=== PATIENT | female | born 1955 | race Caucasian/White ===

== ENCOUNTER → 2016-09-16 | Outpatient (CLI) | payer OTHER ==
[~2016-09-16] MED LIST: ARIM1TAB4; CLON-412 PO; MAXA10TA14 PO; MOTR200T44 PO; NEXI40CA PO; TRAM100T PO
--- NOTE | 2016-09-17 12:03 | RADONC ---
RADIATION ONCOLOGY FOLLOWUP NOTE: DATE OF SERVICE: 09/16/2016 CHART NO: [id number] DIAGNOSIS: Right breast cancer. STAGE: Stage II A, T2N0M0 ECOG PERFORMANCE STATUS: 0 Ms. 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 The patient presents today reporting that she is doing quite well with no complaints at this time related to her radiation therapy or disease. She has no breast or bone pain. REVIEW OF SYSTEMS: The patient's review of systems is noncontributory. Denies nausea, vomiting, fevers, chills, night sweats, diplopia, headaches, anxiety or depression, anorexia, weight loss, visual disturbances, chest pain, urinary or bowel difficulties, bone pain, or neurological problems. PHYSICAL EXAMINATION: The patient is a well-developed, well-nourished female in no acute distress. HEENT exam is normocephalic, atraumatic. Extraocular movements are intact. There is no palpable cervical, supraclavicular, infraclavicular, axillary, or inguinal lymphadenopathy present. Lungs are clear to auscultation and percussion. Heart has a regular rate and rhythm. Abdomen is benign with no hepatosplenomegaly, masses, or tenderness. Breast examination reveals no masses or discharge bilaterally. Skeletal examination reveals no tenderness to pressure or percussion of the bony skeleton. Extremities reveal no clubbing, cyanosis, or edema. Neurologic exam is grossly intact, as is the remainder of the physical examination. ASSESSMENT: The patient is clinically LOU at this time will be seen by us again in 6 months for further followup. She will also continue to be followed by her other physicians as well. cc: Argelia Saunders MD *Dr. Burton
== END ==
LOC: M ONCR 13:06
PROVIDERS: ATTEND Radiology Radiation Oncology
DX: C50.511 Malignant neoplasm of lower-outer quadrant of right female breast (principal)

== ENCOUNTER → 2017-03-24 | Outpatient (CLI) | payer OTHER ==
--- NOTE | 2017-03-25 07:42 | RADONC ---
RADIATION ONCOLOGY FOLLOWUP NOTE DATE: 03/24/2017 CHART NUMBER: [id number] DIAGNOSIS: Right breast cancer. STAGE: II A, T2N0M0. ECOG PERFORMANCE STATUS: 0. FOLLOWUP NOTE: Ms. 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 The patient presents today reporting that she is doing quite well with no complaints at this time related to radiation therapy or disease. She has no breast or bone pain. REVIEW OF SYSTEMS: The patient's review of systems is noncontributory. Denies nausea, vomiting, fevers, chills, night sweats, diplopia, headaches, anxiety or depression, anorexia, weight loss, visual disturbances, chest pain, urinary or bowel difficulties, bone pain, or neurological problems. PHYSICAL EXAMINATION: The patient is a well-developed, well-nourished 61-year-old female in no acute distress. HEENT exam is normocephalic, atraumatic. Extraocular movements are intact. There is no palpable cervical, supraclavicular, infraclavicular, axillary, or inguinal lymphadenopathy present. Lungs are clear to auscultation and percussion. Heart has a regular rate and rhythm. Abdomen is benign with no hepatosplenomegaly, masses, or tenderness. Breast examination reveals no masses or discharge bilaterally. Skeletal examination reveals no tenderness to pressure or percussion of the bony skeleton. Extremities reveal no clubbing, cyanosis, or edema. Neurologic exam is grossly intact, as is the remainder of the physical examination. ASSESSMENT: The patient is clinically LOU at this time and will be seen by us again in 6 months for further followup. She will also continue be followed by her other physicians as well. Cc: Dr. Burton cc: Argelia Saunders MD
== END ==
LOC: M ONCR 13:09
PROVIDERS: ATTEND Radiology Radiation Oncology
DX: C50.511 Malignant neoplasm of lower-outer quadrant of right female breast (principal)

== ENCOUNTER → 2017-09-29 | Outpatient (CLI) | payer OTHER | LOC: M ONCR 13:17 | DX: Z08 Encounter for follow-up examination after completed treatment for malignant neoplasm (principal); Z85.3 Personal history of malignant neoplasm of breast; Z92.3 Personal history of irradiation | CPT/HCPCS: G0463 ==

== ENCOUNTER → 2018-10-12 | Outpatient (CLI) | payer OTHER ==
[~2018-10-12] MED LIST changes: -ARIM1TAB4; +ARIM1TAB5; +AROM25TA PO; +CLON0.3D8 TOP; -TRAM100T PO; +TRAM100T21 PO; +WELLTAB40 PO
--- NOTE | 2018-10-14 08:24 | RADONC ---
RADIATION ONCOLOGY FOLLOWUP NOTE DATE: 10/12/2018 CHART NUMBER: [id number] DIAGNOSIS: Right breast cancer. STAGE: Stage II A, T2N0M0 ECOG PERFORMANCE STATUS: 0. FOLLOWUP NOTE: Ms. 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 The patient presents today reporting that she is doing quite well with no complaints at this time related to her radiation therapy or disease. She has no breast or bone pain. REVIEW OF SYSTEMS: The patient's review of systems is noncontributory. Denies nausea, vomiting, fevers, chills, night sweats, diplopia, headaches, anxiety or depression, anorexia, weight loss, visual disturbances, chest pain, urinary or bowel difficulties, bone pain, or neurological problems. PHYSICAL EXAMINATION: The patient is a well-developed, well-nourished female in no acute distress. HEENT exam is normocephalic, atraumatic. Extraocular movements are intact. There is no palpable cervical, supraclavicular, infraclavicular, axillary, or inguinal lymphadenopathy present. Lungs are clear to auscultation and percussion. Heart has a regular rate and rhythm. Abdomen is benign with no hepatosplenomegaly, masses, or tenderness. Breast examination reveals no masses or discharge bilaterally. Skeletal examination reveals no tenderness to pressure or percussion of the bony skeleton. Extremities reveal no clubbing, cyanosis, or edema. Neurologic exam is grossly intact, as is the remainder of the physical examination. ASSESSMENT: The patient is clinically LOU at this time. She reports that she is being followed closely by her medical oncologist, Dr. Rosado, and is indeed scheduled see her in November for further followup. Dr. Rosado is managing the patient's medication. In light of this close followup and management, I have discharge this patient from our followup except on an as needed basis. The patient has my cell phone number and office number and we are available to her at anytime for anything whatsoever. cc: MD Lia Gambino MD
== END ==
LOC: M ONCR 12:50
PROVIDERS: ATTEND Radiology Radiation Oncology
DX: C50.511 Malignant neoplasm of lower-outer quadrant of right female breast (principal)

== ENCOUNTER → 2020-09-28 | Outpatient (REF) | payer OTHER | LOC: M LAB REF 11:45 | PROVIDERS: ATTEND Nurse Practitioner Adult Health | DX: M85.80 Other specified disorders of bone density and structure, unspecified site (principal); M81.0 Age-related osteoporosis without current pathological fracture ==

== ENCOUNTER → 2021-02-27 | Outpatient (CLI) | payer OTHER ==
--- NOTE | 2021-02-28 05:36 | REP ---
INDICATION: PAIN COMPARISON: None. TECHNIQUE: Internal rotation, external rotation, and Y view. FINDINGS: Acromioclavicular and glenohumeral joints are intact and essentially age-appropriate. Mild osteopenia and mild age-related changes include subtle cortical irregularity at the acromion and subtle blunting to the calcified glenoid rim. Subtle subchondral cystic changes along the humeral head cannot be excluded. Subacromial space is normal. No periarticular calcifications or loose bodies. Evidence for prior right axillary node dissection. IMPRESSION: Mild age-related arthritic changes. <Electronically signed by Gregg Edwards > 02/28/21 [id number]
== END ==
LOC: M WUC 15:09
PROVIDERS: ATTEND Nurse Practitioner Adult Health
DX: M25.511 Pain in right shoulder (principal); M19.011 Primary osteoarthritis, right shoulder

== ENCOUNTER → 2021-04-19 | Outpatient (REF) | payer OTHER | LOC: M LAB REF 16:31 | PROVIDERS: ATTEND Nurse Practitioner Adult Health | DX: Z51.81 Encounter for therapeutic drug level monitoring (principal); Z79.899 Other long term (current) drug therapy ==

== ENCOUNTER → 2021-09-14 | Outpatient (REF) | payer OTHER | LOC: M LAB REF 10:21 | PROVIDERS: ATTEND Nurse Practitioner Adult Health | DX: R30.0 Dysuria (principal) ==

== ENCOUNTER → 2021-10-25 | Outpatient (REF) | payer OTHER | LOC: M LAB REF 12:11 | PROVIDERS: ATTEND Nurse Practitioner Adult Health | DX: Z51.81 Encounter for therapeutic drug level monitoring (principal) ==

== ENCOUNTER → 2022-05-08 | Outpatient (REF) | payer OTHER ==
[~2022-05-08] MED LIST changes: -MAXA10TA14 PO; +RIZA10TA64 PO
== END ==
LOC: M LAB REF 12:36
PROVIDERS: ATTEND Nurse Practitioner Adult Health
DX: E87.6 Hypokalemia (principal); M81.0 Age-related osteoporosis without current pathological fracture

== ENCOUNTER → 2022-06-18 | Outpatient (REF) | payer OTHER | LOC: M LAB REF 12:22 | PROVIDERS: ATTEND Nurse Practitioner Adult Health | DX: Z01.818 Encounter for other preprocedural examination (principal) ==

== ENCOUNTER → 2022-12-13 | Outpatient (REF) | payer OTHER | LOC: M LAB REF 16:27 | PROVIDERS: ATTEND Nurse Practitioner Adult Health | DX: Z79.899 Other long term (current) drug therapy (principal) ==

== ENCOUNTER → 2023-07-22 | Outpatient (REF) | payer MEDICARE, BC | LOC: M LAB REF 17:44 | PROVIDERS: ATTEND Nurse Practitioner Adult Health | DX: M85.80 Other specified disorders of bone density and structure, unspecified site (principal) ==

== ENCOUNTER → 2023-11-20 | Outpatient (CLI) | payer MEDICARE, BC | LOC: M WUC 08:50 | PROVIDERS: ATTEND Nurse Practitioner Adult Health | DX: R22.42 Localized swelling, mass and lump, left lower limb (principal); M77.32 Calcaneal spur, left foot; M19.072 Primary osteoarthritis, left ankle and foot; M79.89 Other specified soft tissue disorders; M19.041 Primary osteoarthritis, right hand ==

== ENCOUNTER → 2024-07-01 | Outpatient (REF) | payer MEDICARE, BC | LOC: M LAB REF 16:35 | PROVIDERS: ATTEND Nurse Practitioner Adult Health | DX: R20.2 Paresthesia of skin (principal); M81.0 Age-related osteoporosis without current pathological fracture ==

== ENCOUNTER → 2025-03-11 | Outpatient (CLI) | payer MEDICARE, OTHER | LOC: M WUC 10:36 | PROVIDERS: ATTEND Nurse Practitioner Adult Health | DX: M25.551 Pain in right hip (principal); W18.31XA Fall on same level due to stepping on an object, initial encounter ==

== ENCOUNTER → 2025-04-15 | Outpatient (REF) | payer MEDICARE, OTHER ==
[2025-04-15 14:07] LABS: C REACTIVE PROTEIN QUANTITATIV < 0.50 MG/DL (<1.0)
[2025-04-15 14:10] LABS: RHEUMATOID FACTOR QUANT < 3.5 IU/ML (<14)
[2025-04-15 14:41] LABS: HEPATITIS C VIRUS ABY INDEX < 0.02 INDEX (<0.8)
[2025-04-19 19:02] LABS: LYME TOTAL ANTIBODY CIA <= 0.90 Index (<=0.90)
== END ==
LOC: M LAB REF 12:33
PROVIDERS: ATTEND Nurse Practitioner Adult Health
DX: Z01.89 Encounter for other specified special examinations (principal); M19.90 Unspecified osteoarthritis, unspecified site; Z11.3 Encounter for screening for infections with a predominantly sexual mode of transmission; Z72.89 Other problems related to lifestyle